=== PATIENT | male | born 1945 | race Caucasian/White ===

== ENCOUNTER 2019-05-18 15:05 | Observation (INO) | payer SELFPAY | END 2019-05-18 19:15 | disposition home or self-care (01) | PROVIDERS: Admitting Provider Internal Medicine Cardiovascular Disease; Family Provider Emergency Medicine Emergency Medical Services; Visit Provider Internal Medicine Cardiovascular Disease | DX: I70.223 Atherosclerosis of native arteries of extremities with rest pain, bilateral legs (principal); K21.9 Gastro-esophageal reflux disease without esophagitis; J44.9 Chronic obstructive pulmonary disease, unspecified; Z98.890 Other specified postprocedural states; N40.0 Benign prostatic hyperplasia without lower urinary tract symptoms; Z87.891 Personal history of nicotine dependence; Z79.82 Long term (current) use of aspirin; I77.1 Stricture of artery | CPT/HCPCS: 36415; 37224; 85730 ×2; C1725; J1644; J2001; J2250 ×2; J2405; J3010 ×2; Q9967 ==

== ENCOUNTER → 2019-05-26 11:14 | Outpatient (BNVA) | payer OTHER, SELFPAY | PROVIDERS: Family Provider Emergency Medicine Emergency Medical Services; PCP Nurse Practitioner Family; Visit Provider Nurse Practitioner Family | DX: I73.9 Peripheral vascular disease, unspecified (principal) | CPT/HCPCS: 80048 ==

== ENCOUNTER → 2021-12-13 09:05 | Outpatient (BNVA) | payer OTHER, SELFPAY | PROVIDERS: Family Provider Emergency Medicine Emergency Medical Services; PCP Emergency Medicine Emergency Medical Services; Visit Provider Surgery | DX: R13.10 Dysphagia, unspecified (principal); K63.5 Polyp of colon; R10.9 Unspecified abdominal pain | CPT/HCPCS: 99204 ==

== ENCOUNTER 2022-01-02 06:14 | Outpatient (CLI) | payer OTHER, SELFPAY ==
--- NOTE | 2022-01-02 | US_ITS ---
WS: [id number] ULTRASOUND ABDOMEN LIMITED CLINICAL INFORMATION: RIGHT ABDOMINAL PAIN. RUQ TO ASSESS GALLBLADDER COMPARISON: None. FINDINGS: Liver Size: Normal. Craniocaudal length: 13.7 cm. Echogenicity: Normal. Surface nodularity: None. Mass (size and location): None. Bile ducts Intrahepatic ducts: Normal. Common bile duct diameter: 0.3 cm. Gallbladder Normal. Gallstones: None. Gallbladder sludge: None. Gallbladder wall thickening: None. Pericholecystic fluid: None. Sonographic Muñoz sign: Absent. Pancreas Normal as visualized. Right kidney: Normal. Hydronephrosis: None. Size: 10.2 cm x 5.1 cm x 3.9 cm. Abdominal aorta and IVC Visualized portions are normal. Ascites: None. US/US abdomen limited [id number] IMPRESSION: Normal RIGHT upper quadrant ultrasound
== END 2022-01-02 06:15 | disposition home or self-care (01) ==
LOC: RAD 06:15
PROVIDERS: PCP Emergency Medicine Emergency Medical Services; Visit Provider Emergency Medicine Emergency Medical Services
DX: R10.11 Right upper quadrant pain (principal)
CPT/HCPCS: 76705

== ENCOUNTER → 2022-01-17 14:18 | Outpatient (BNVA) | payer OTHER, SELFPAY | PROVIDERS: PCP Emergency Medicine Emergency Medical Services; Visit Provider Surgery | DX: R59.0 Localized enlarged lymph nodes (principal); K63.5 Polyp of colon; R13.10 Dysphagia, unspecified | CPT/HCPCS: 99213 ==

== ENCOUNTER 2022-02-07 11:50 | Outpatient (CLI) | payer OTHER, SELFPAY ==
--- NOTE | 2022-02-07 12:11 | CT_ITS ---
WS: [id number] CT ABDOMEN PELVIS TECHNIQUE: Noncontrast CT of the abdomen and pelvis with coronal and sagittal reformatted images. CLINICAL INFORMATION: ABDOMINAL PAIN COMPARISON: CT October 25, 2015 DLP: 750.[address] scans at [facility] use at least one of these dose optimization techniques: automated e xposure control; mA and/or kV adjustment per patient size (includes targeted exams where dose is matc hed to clinical indication); or iterative reconstruction. FINDINGS: Normal noncontrast liver. Splenic granulomas. Circumferential thickening at the GE junction distal es ophagus can be seen with esophagitis. Recommend clinical correlation. Normal stomach and proximal duo denum. Gallbladder appears normal. Normal noncontrast pancreas. Aortic calcification. Normal caliber abdominal aorta. No aneurysm. Trace pleural fluid in the lung bases. Atelectasis and fibrosis in the lower lobes RIGHT greater than LEFT. Pectus excavatum. Urine distended bladder. Enlarged heterogeneous nodular prostate progressed since 2016 with evidence of bladder outlet obstruction. Prostate measures 4.2 x 4.5 cm with indentation on the bladder. Rectosigmoid constipation. Diffuse pancolonic constipation. . Low-lying tortuous transverse colon. To rtuous sigmoid colon with caliber change in the LEFT lower quadrant proximal to the rectum. Sigmoid c olon appears completely decompressed in this area. Recommend further evaluation with colonoscopy to a ssess for stricture. Normal lumbar spine. Adrenal glands are normal. No hydronephrosis in either kidn ey. CT/CT abdomen pelvis wo con [id number] IMPRESSION: 1. Markedly enlarged heterogeneous nodular prostate with indentation the bladd er with evidence of bladder outlet obstruction. Findings suspicious for neoplas ia/hyperplasia. Recommend correlation PSA. This is progressed since 2016. 2. Caliber change in the sigmoid colon in the LEFT lower quadrant. Recommend f urther evaluation with colonoscopy to assess for stricture. Diffuse pancolonic constipation proximal to the area of decompression. 3. Mild circumferential thickening at the GE junction can be seen with esophag itis. Recommend clinical correlation. 4. Normal caliber abdominal aorta. No aneurysm. 5. Fibrosis in the lung bases with trace pleural fluid. 6. No other acute findings.
[2022-02-07] MEDS: barium sulfate 450 mL Oral Susp PO (13:56)
== END 2022-02-07 11:51 | disposition home or self-care (01) ==
LOC: RAD 11:51
PROVIDERS: PCP Emergency Medicine Emergency Medical Services; Visit Provider Emergency Medicine Emergency Medical Services
DX: N40.0 Benign prostatic hyperplasia without lower urinary tract symptoms (principal); R10.9 Unspecified abdominal pain
CPT/HCPCS: 74176

== ENCOUNTER → 2022-02-28 06:42 | Day surgery (SDC) | payer OTHER, SELFPAY ==
[2022-02-26 08:49] VITALS: BMI 17.9
--- NOTE | 2022-02-28 07:35 | ANES.PREANE2 ---
Pre-Anesthetic Assessment Height/Weight: Height 1.78 m Weight 56.699 kg Operation Date: 02/28/22 07:30 Proposed Procedures p EGD and colonoscopy 70733,79364,R13.10,K63.5,R10.9(Not Applicable) - Leo Hubbard DO s Colonoscopy(Not Applicable) - Leo Hubbard DO Familial anesthetic complications: none Was Beta Mallory taken within 24 hours: N/A Was Clonidine taken within 24 hours: N/A Last intake: black coffee at 0530 Social No alcohol and No tobacco former smoker Exam alert, oriented x 3, clear to auscultation bilaterally and regular rate & rhythm Airway Mallampati: Class II Dentition: full Pulmonary 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 Prednisone 5 mg daily CV/HEM Peripheral Vascular Disease GI Gastroesophageal Reflux Disease Musc/skel underweight Anesthetic Plan ASA status: 4 Anesthesia: MAC Risk of > 500 ml blood loss (7ml/kg in children): No Medications/Allergies Home Medications Medication Instructions Recorded Confirmed Last Taken Type albuterol sulfate 90 mcg/actuation 2 puff inhalation Q6H PRN 05/26/19 02/26/22 02/26/22 History aerosol inhaler (ProAir HFA) Shortness Of Breath aspirin 81 mg tablet,delayed 81 mg PO DAILY 05/26/19 02/26/22 02/26/22 History release (Adult Aspirin Regimen) cetirizine 10 mg capsule (Allergy 10 mg PO DAILY 05/26/19 02/26/22 02/26/22 History Relief (cetirizine)) fluticasone furoate 200 1 inh inhalation Q24H 05/26/19 02/26/22 02/26/22 History mcg/actuation blister powder for inhalation (Arnuity Ellipta) guaifenesin 400 mg tablet 400 mg PO Q4H 05/26/19 02/26/22 02/26/22 History potassium chloride 10 mEq 10 meq PO BID 05/26/19 02/26/22 02/26/22 History capsule,extended release tiotropium bromide 1.25 2 puff inhalation Q24H 05/26/19 02/26/22 Unknown History mcg/actuation mist for inhalation (Spiriva Respimat) ascorbate calcium (vitamin C) 500 500 mg PO DAILY 08/26/19 02/26/22 02/26/22 History mg tablet cholecalciferol (vitamin D3) 75 3,000 unit PO DAILY 08/26/19 02/26/22 02/26/22 History mcg (3,000 unit) tablet prednisone 5 mg tablet 5 mg PO DAILY 02/26/22 02/26/22 02/26/22 History acetaminophen 500 mg tablet 1,000 mg PO Q6H PRN Pain 02/28/22 02/28/22 02/27/22 History diphenhydramine HCl 25 mg capsule 25 mg PO BEDTIME 02/28/22 02/28/22 02/26/22 History (Benadryl) echinacea 500 mg capsule 500 mg PO DAILY PRN Pain 02/28/22 02/28/22 02/27/22 History tamsulosin 0.4 mg capsule 0.4 mg PO DAILY 02/28/22 02/28/22 02/26/22 History Allergies Allergy/AdvReac Type Severity Reaction Status Date / Time penicillin G Allergy Unresponsiv Verified 02/26/22 08:44 e Sulfa (Sulfonamide Allergy Unknown Verified 02/26/22 08:44 Antibiotics) tetracycline Allergy Unknown Verified 02/26/22 08:44 [facility] Anesthesia Medical History BPH (benign prostatic hyperplasia) Colon polyps COPD (chronic obstructive pulmonary disease) Dysphagia Esophageal dilatation GERD (gastroesophageal reflux disease) PAD (peripheral artery disease) S/P angiogram of extremity Surgical History History of esophagogastroduodenoscopy (EGD) History of tonsillectomy and adenoidectomy Hx of colonoscopy over 5 yrs ago-no polyps Family History Father Cancer COLON Mother Alzheimer disease Social History Smoking and tobacco status: never smoked Alcohol intake: current Desire information about alcohol rehabilitation?: No Counseling given: No Data Anesthesia Cardiac Studies: No Data to Display
[2022-02-28 07:41] VITALS: BP 128/54; PULSE 61; RESP 18; TEMP 36.6; O2SAT 98
[2022-02-28] MEDS: sodium chloride 0.9% 1,000 ML 30 ML IV (07:45)
--- NOTE | 2022-02-28 07:47 | ECG_ITS ---
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 Measurements Intervals [place] Rate: 59 P: 67 ID: [id number] QRS: 75 QRSD: 93 T: 66 QT: 431 QTc: 427 Interpretive Statements SINUS BRADYCARDIA POSSIBLE LEFT ATRIAL ENLARGEMENT [-0.1mV P-WAVE IN V1/V2] SEPTAL MYOCARDIAL INFARCTION , PROBABLY OLD [40+ ms Q WAVE IN V1/V2] Compared to ECG 04/21/2018 16:42:33 Myocardial infarct finding now present Sinus rhythm no longer present Electronically Signed On 03-01-2022 13:04:30 CDT by Katy Ellsi M.D. [id number]
--- NOTE | 2022-02-28 08:13 | PM.MISC ---
Miscellaneous Note Note: After exam, patient revealed he has had history of chest pains and hasn't seen a mechanic and welder. Chest pain is atypical in nature, over the sternum, sometimes displaced slightly to the lower right of sternum, the pain is sharp, lasts 30 seconds, and is brought on randomly. It is not exacerbated by activity. He also states that the pain has become less frequent since his lungs have improved. States last episode was 3 weeks ago. EKG revealed Q waves in V1 and V2. No active chest pain at the moment. 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 He has also been having dizzy spells and episodes of almost blacking out. This occurred again last night.
--- NOTE | 2022-02-28 08:22 | PC.NURSE ---
case canceled due to patient having dizziness and almost passing out and having a history of chest pain without seeing a master of ceremonies. 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
== END ==
PROVIDERS: PCP Emergency Medicine Emergency Medical Services; Visit Provider Surgery
PROC: 0DJ08ZZ Inspection of Upper Intestinal Tract, Via Natural or Artificial Opening Endoscopic (ICD-10-PCS; CPT 43235; principal; 2022-02-28 07:30)
PROC: 0DJD8ZZ Inspection of Lower Intestinal Tract, Via Natural or Artificial Opening Endoscopic (ICD-10-PCS; CPT 45378; 2022-02-28 07:30)
DX: Z53.8 Procedure and treatment not carried out for other reasons (principal); R13.10 Dysphagia, unspecified; J44.9 Chronic obstructive pulmonary disease, unspecified; Z79.52 Long term (current) use of systemic steroids; K21.9 Gastro-esophageal reflux disease without esophagitis; Z79.82 Long term (current) use of aspirin; N40.0 Benign prostatic hyperplasia without lower urinary tract symptoms
CPT/HCPCS: 93005; J7030

== ENCOUNTER → 2022-03-08 08:42 | Outpatient (BNVA) | payer OTHER, SELFPAY | PROVIDERS: PCP Emergency Medicine Emergency Medical Services; Visit Provider Urology | DX: N43.40 Spermatocele of epididymis, unspecified (principal); N50.9 Disorder of male genital organs, unspecified | CPT/HCPCS: 81003; 99203 ==

== ENCOUNTER → 2022-03-22 12:38 | Outpatient (BNVA) | payer OTHER, SELFPAY | PROVIDERS: PCP Emergency Medicine Emergency Medical Services; Visit Provider Internal Medicine Cardiovascular Disease | DX: R00.1 Bradycardia, unspecified (principal); R94.31 Abnormal electrocardiogram [ECG] [EKG]; J44.9 Chronic obstructive pulmonary disease, unspecified; I73.9 Peripheral vascular disease, unspecified; Z87.891 Personal history of nicotine dependence | CPT/HCPCS: 99213; 99214 ==

== ENCOUNTER 2022-06-04 07:38 | Outpatient (CLI) | payer OTHER, SELFPAY ==
[2022-06-04 07:46] VITALS: BMI 16.0
--- NOTE | 2022-06-04 08:02 | ECG_ITS ---
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 Interpretive Statements NAME OF STUDY: LEXISCAN SESTAMIBI STRESS TEST INDICATION: [abnormal ekg, ] Procedure: At the baseline, the blood pressure was 111/61 mmHg with a heart rate of 66 bpm. The electrocardiogram showed normal sinus rhythm, normal axis with normal ST and T's. The Lexiscan was infused over a period of 20 seconds. A total of 0.4 mg of Lexiscan was infused. The stress phase was continued for a total of 5 minutes. Heart rate was at the end of stress phase was 73 bpm and a blood pressure of 115/67 mmHg. The EKG at the peak infusion revealed normal sinus rhythm with no significant ST-T wave changes. Sestamibi was injected 20 seconds after the Lexiscan infusion. Blood pressure at the end of recovery phase was 116/66 mmHg with a heart rate of 72 bpm. Conclusion: 1. Normal EKG response to Lexiscan infusion 2. No Lexiscan induced chest pain or cardiac arrhythmia. 3. Normal blood pressure and heart rate response. 4. Sestamibi/sestamibi perfusion scan pending; see separate report. Electronically Signed On 06-17-2022 19:50:50 HYDRAULIC PRESS OPERATOR by Sidney Maldonado M.D. [id number]
--- NOTE | 2022-06-04 08:03 | NMCV_ITS ---
NM janeth perf SPECT r/s* [id number] Olivier Gregg Age: 76 Gender: M : 1945 Exam Date: 06/04/2022 08:44 Ordering Phys: Ariel Ashton MD ([email or web address]) Technologist: SAVANNAH Ramos Exam Location: [facility] Indications: ABNORMAL EKG STRESS TEST Please see separate stress test report in [facility] for full findings IMAGE PROTOCOL Rest/Stress 1 Lexiscan Day Radiopharmaceutical Dose (mCi) Administration Site Administered by Rest: Tc-99m 10.8 IV SAVANNAH Weller Sestamibi Stress:Tc-99m 32.7 IV SAVANNAH Weller Sestamibi Rest: 04-Jun-2022 60 Discovery 630 Stress: 04-Jun-2022 30 Discovery 630 0.4mg Lexiscan. Images obtained in supine and prone position. SPECT RESULTS Technical Quality: Excellent Raw Data Analysis: Normal Image Corrections: No attenuation or motion correction applied Summed Stress Score: 0 Summed Rest Score: 0 Summed Difference Score: 0 PERFUSION FINDINGS SPECT images demonstrate homogeneous tracer distribution throughout the myocardium. FUNCTIONAL RESULTS (calculated via Gated SPECT) Stress Image LV EF (%): 62 Stress EDV (mL):85 TID: 1.17 Stress ESV (mL):32 FUNCTIONAL FINDINGS: There is normal left ventricular systolic function. IMPRESSIONS 1. Normal myocardial perfusion imaging with no evidence of ischemia 2. LV systolic function is normal Sidney Maldonado MD (Electronically Signed) Final Date: 04 June 2022 12:38 S
[2022-06-04] MEDS: regadenoson 0.4 Mg/5 ml Syringe IVP (10:16)
[2022-06-04 10:20] VITALS: BP 128/69; PULSE 72
== END 2022-06-04 07:39 | disposition home or self-care (01) ==
PROVIDERS: PCP Emergency Medicine Emergency Medical Services; Visit Provider Internal Medicine Cardiovascular Disease
DX: R94.31 Abnormal electrocardiogram [ECG] [EKG] (principal)
CPT/HCPCS: 36415; 78452; 93017; 96374; A9500; J2785

== ENCOUNTER 2022-09-15 11:19 | Emergency (ER) | payer OTHER, SELFPAY ==
[2022-09-15 11:25] VITALS: BP 124/81; PULSE 93; RESP 16; TEMP 36.4; O2SAT 97; BMI 16.9
--- NOTE | 2022-09-15 11:54 | ECG_ITS ---
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 Measurements Intervals [place] Rate: 85 P: 79 OR: 187 QRS: 79 QRSD: 90 T: 65 QT: 339 QTc: 404 Interpretive Statements SINUS RHYTHM RIGHT ATRIAL ENLARGEMENT [0.3mV P-WAVE] POSSIBLE LEFT ATRIAL ENLARGEMENT [-0.1mV P-WAVE IN V1/V2] Compared to ECG 02/28/2022 07:47:30 Sinus bradycardia no longer present Myocardial infarct finding no longer present Electronically Signed On 09-15-2022 16:41:06 CDT by Grzegorz Damon M.D. [id number]
--- NOTE | 2022-09-15 11:54 | CTR_ITS ---
PROCEDURE INFORMATION: Exam: CT Head Without Contrast Exam date and time: 09/15/2022 12:46 PM Age: 77 years old Clinical indication: Other: Loss of balance; Additional info: Loss of balance - sudden onset TECHNIQUE: Imaging protocol: Computed tomography of the head without contrast. Radiation optimization: All CT scans at this facility use at least one of these dose optimization techniques: automated exposure control; mA and/or kV adjustment per patient size (includes targeted exams where dose is matched to clinical indication); or iterative reconstruction. REPORTING DATA: Count of CT and Cardiac NM exams in prior 12 months: This patient has received 2 known CTs and 0 known cardiac nuclear medicine studies in the 12 months prior to the current study. COMPARISON: CT head wo con* [id number] 04/21/2018 6:05 PM RADIATION DOSE METRICS: Total DLP (mGy-cm): 1012.95 FINDINGS: Brain: Normal. No hemorrhage. Unremarkable white matter. No mass effect. Cerebral ventricles: No ventriculomegaly. Paranasal sinuses: Visualized sinuses are unremarkable. No fluid levels. Mastoid air cells: Visualized mastoid air cells are well aerated. Bones/joints: Unremarkable. No acute fracture. Soft tissues: Unremarkable. Comparison to prior examination similar findings seen CT/CT head wo con* [id number] IMPRESSION: No acute intracranial abnormality.
[2022-09-15 12:21] VITALS: BP 107/84; PULSE 90; RESP 23; O2SAT 96
[2022-09-15 12:23] VITALS: BP 107/84; BP 110/82; BP 123/81; PULSE 92; PULSE 93; PULSE 98
--- NOTE | 2022-09-15 12:26 | XRR_ITS ---
PROCEDURE INFORMATION: Exam: XR Chest Exam date and time: 09/15/2022 12:52 PM Age: 77 years old Clinical indication: Other: Loss of balance; Additional info: SOB TECHNIQUE: Imaging protocol: Radiologic exam of the chest. Views: 2 views. COMPARISON: CR XR chest 1V [id number] 04/21/2018 2:30 PM FINDINGS: Lungs: Interstitial densities present in the right lower lobe No consolidation. The lungs are hyperexpanded consistent with COPD. Left upper lobe pneumatocele Pleural spaces: Unremarkable. No pleural effusion. No pneumothorax. Heart/Mediastinum: Unremarkable. No cardiomegaly. Bones/joints: Diffuse osteopenia is noted in the dorsal spine XR/XR chest 2V* [id number] IMPRESSION: 1. No acute findings. 2. Stable chronic COPD. 3. Interstitial densities right lower lobe. 4. Left upper lobe pneumatocele
--- NOTE | 2022-09-15 12:29 | ED_ITS ---
HPI - Weakness General: Chief complaint: Weakness Stated complaint: Weakness Time Seen by Provider: 09/15/22 11:53 History of Present Illness: Patient comes in with generalized weakness. States that he has [facility] for a while now. States that they have him scheduled for an EGD and a colonoscopy this week. States that over the last cou ple of days his weakness is gotten worse. States yesterday he had an episode walking back to his truck where he felt off balance like he was pulling to the left. States that it lasted for about 30 minutes and then resolved. States that this morning when he got up to use the restroom a couple of times he had similar episodes and nearly passed out. States that this morning while walking to the bathroom his initial episode he felt like his left side was weak. He is currently asymptomatic at this time. Associated symptoms: Denies chest pain, dysuria, fever(s), headache(s), nausea or vomiting Review of Systems Const: Denies: fever(s) or body aches Eyes: Denies: change in vision or blurry vision ENMT: Denies: throat pain or odynophagia Card: Denies: chest pain or palpitations Resp: Denies: dyspnea or productive cough GI: Denies: abdominal pain, nausea or vomiting : Denies: flank pain or dysuria Musc: Denies: neck pain or back pain Skin/Breast: Denies: rash Neuro: Denies: headache(s) or numbness in extremities PFS ED PFSH: Medical History (Updated 09/15/22 @ 15:24 by Neeraj Edgar MD) Abnormal ECG BPH (benign prostatic hyperplasia) Colon polyps COPD (chronic obstructive pulmonary disease) Dysphagia Esophageal dilatation GERD (gastroesophageal reflux disease) PAD (peripheral artery disease) S/P angiogram of extremity Surgical History History of esophagogastroduodenoscopy (EGD) History of tonsillectomy and adenoidectomy Hx of colonoscopy over 5 yrs ago-no polyps Family History Father , at age 75 Cancer colon Mother , at age 86 Alzheimer disease Social History Smoking and tobacco status: former smoker Alcohol intake: current Alcohol intake frequency: 0-2 Drinks per Day Desire information about alcohol rehabilitation?: No Counseling given: No Substance/Drug Use: former Marital status: Current occupational status: retired and disabled Physical Exam Const: COMMON NORMALS: no acute distress, patient oriented x3 and alert HENMT: COMMON NORMALS: normocephalic and atraumatic HEAD & SCALP: normocephalic and atraumatic Eye: COMMON NORMALS: Equal, round and reactive pupils present and EOMs intact bilaterally PUPIL: Yes Equal, round and reactive pupils present OTHER: Pale conjunctiva Neck/C-Spine: COMMON NORMALS: full ROM and supple Resp: COMMON NORMALS: normal respiratory effort, No retractions and No use of accessory muscles Cardio: COMMON NORMALS: regular rate and regular rhythm RATE: regular rate RHYTHM: regular rhythm GI: COMMON NORMALS: Normal to inspection, nondistended, normoactive bowel sounds present, Soft to palpation and non-tender PALPATION: Yes Soft to palpation Extremity: COMMON NORMALS: normal to inspection and full ROM Neuro: COMMON NORMALS: patient oriented x3 SENSORIUM/ORIENTATION: Yes alert OTHER: Grossly normal neuro exam with no lateralizing symptoms Psych: COMMON NORMALS: mental status grossly normal and cooperative Skin: COMMON NORMALS: no rashes or lesions noted and no wounds GENERAL SKIN EXAM: no rashes or lesions noted Course Vital Signs: Vital signs: Vital Signs Temperature 97.5 F L 09/15/22 11:25 Pulse Rate 77 09/15/22 14:51 Respiratory Rate 24 H 09/15/22 14:51 Blood Pressure 113/69 09/15/22 14:51 Pulse Oximetry 97 09/15/22 14:51 Oxygen Delivery Me thod Room Air 09/15/22 12:21 MDM - Weakness Medical Decision Making Patient comes in with generalized weakness. States that [facility] now. States that they have him scheduled for an EGD and a colonoscopy this week. States that over the last couple of days his weakness is gotten worse. States yesterday he had an episode walking back to his truck where he felt off balance like he was pulling to the left. States that it lasted for about 30 minutes and then resolved. States that this morning when he got up to use the restroom a couple of times he had similar episodes and nearly passed out. States that this morning while walking to the bathroom his initial episode he felt like his left side was weak. He is currently asymptomatic at this time. On physical exam he has pale conjunctiva. His neuro exam is grossly normal with no lateralizing symptoms. Will check labs, CT, and reassess. On reassessment I talked to the patient about the test results. I talked with him about my concerns that these episodes may represent TIAs. I talked with him about admission for a TIA/stroke work-up. The patient states he does not want to be admitted. I talked with him about the increased risk for a full stroke over the next 72 hours. He states he understands that but does not want to be admitted. We will have him sign AMA. I discussed this with his son who is in the room at the same time. Lab Data 09/15/22 13:41 09/15/22 13:[address] 09/15/22 11:54 IMPRESSION: No acute intracranial abnormality. Chest X-Ray 09/15/22 12:26 IMPRESSION: 1. No acute findings. 2. Stable chronic COPD. 3. Interstitial densities right lower lobe. 4. Left upper lobe pneumatocele Laboratory Results WBC 15.2 10^3/uL (4.0-10.0) H 09/15/22 13:41 RBC 3.99 10^6/uL (4.1-5.3) L 09/15/22 13:41 Hgb 12.4 g/dL (11.7-16.6) 09/15/22 13:41 Hct 39.7 % (42.0-52.0) L 09/15/22 13:41 MCV 99.5 fl (80-94) H 09/15/22 13:41 MCH 31.1 pg (28.0-34.0) 09/15/22 13:41 MCHC 31.2 g/dL (30.0-36.0) 09/15/22 13:41 RDW 13.7 % (12.1-15.1) 09/15/22 13:41 Plt Count 390 10^3/cmm (130-400) 09/15/22 13:41 MPV 9.0 fL (7.4-10.4) 09/15/22 13:41 Neut % (Auto) 73.2 % 09/15/22 13:41 Lymph % (Auto) 12.4 % 09/15/22 13:41 [place] % (Auto) 9.3 % 09/15/22 13:41 Eos % (Auto) 3.6 % 09/15/22 13:41 Baso % (Auto) 0.7 % 09/15/22 13:41 Neut # (Auto) 11.10 10^3/uL (1.8-7.7) H 09/15/22 13:41 Lymph # (Auto) 1.9 10^3/uL (0.8-4.8) 09/15/22 13:41 [place] # (Auto) 1.4 10^3/uL (0.2-0.9) H 09/15/22 13:41 Eos # (Auto) 0.5 10^3/uL (0.0-0.8) 09/15/22 13:41 Baso # (Auto) 0.1 10^3/uL (0.0-0.1) 09/15/22 13:41 Nucleated RBC % (auto) 0 % 09/15/22 13:41 Nucleated RBCs # 0.0 /100WBC 09/15/22 13:41 Sodium 139 mmol/L (136-145) 09/15/22 13:41 Potassium 4.7 mmol/L (3.5-5.1) 09/15/22 13:41 Chloride 101 mmol/L (98-107) 09/15/22 13:41 Carbon Dioxide 24 mmol/L (22-29) 09/15/22 13:41 Anion Gap 18.7 (5-19) 09/15/22 13:41 BUN 17 mg/dL (8-23) 09/15/22 13:41 Creatinine 0.8 mg/dL (0.7-1.2) 09/15/22 13:41 GFR Calculation Not Reportable 09/15/22 13:41 Glucose 79 mg/dL (65-115) 09/15/22 13:41 Calculated Osmolality 288 mOsm/kg (285-295) 09/15/22 13:41 Calcium 8.7 mg/dL (8.5-10.5) 09/15/22 13:41 Magnesium 2.1 mg/dL (1.7-2.3) 09/15/22 13:41 Total Bilirubin 0.5 mg/dL (0.15-1.2) 09/15/22 13:41 AST 18 U/L (0-40) 09/15/22 13:41 ALT 8 U/L (0-41) 09/15/22 13:41 Alkaline Phosphatase 137 U/L (40-130) H 09/15/22 13:41 Troponin T Baseline 6 ng/L (0-15) 09/15/22 13:41 Total Protein 6.6 g/dL (6.6-8.7) 09/15/22 13:41 Albumin 3.7 g/dL (3.5-5.2) 09/15/22 13:41 Globulin 2.9 g/dL (1.3-4.6) 09/15/22 13:41 Urine Color Yellow (Yellow) 09/15/22 12:35 Urine Appearance Clear (CLEAR) 09/15/22 12:35 Urine pH 7 (5-7) 09/15/22 12:35 Ur Specific [place] 1.010 (1.005-1.030) 09/15/22 12:35 Urine Protein Neg (Negative) 09/15/22 12:35 Urine Glucose (UA) Norm (Normal) 09/15/22 12:35 Urine Ketones Negative (Negative) 09/15/22 12:35 Urine Blood Neg (Negative) 09/15/22 12:35 Urine Nitrate Negative (Negative) 09/15/22 12:35 Urine Bilirubin Neg (Negative) 09/15/22 12:35 Urine Urobilinogen Norm mg/dL (Negative) 09/15/22 12:35 Ur Leukocyte Esterase Negative (Negative) 09/15/22 12:35 Blood Type O Positive 09/15/22 13:41 Rho(D) Type Positive 09/15/22 13:41 Antibody Screen Negative 09/15/22 13:41 Discharge Plan Discharge Patient Disposition: Left Against Medical Advice Clinical Impression: Transient ischemic attack, Near syncope Condition: Stable Prescriptions: No Action guaifenesin 400 mg tablet 400 mg PO Q4H Allergy Relief (cetirizine) 10 mg capsule 10 mg PO DAILY potassium chloride 10 mEq capsule, extended release 10 meq PO BID Arnuity Ellipta 200 mcg/actuation blister with device 1 inh INHALATION Q24H albuterol sulfate [ProAir HFA] 90 mcg/actuation HFA aerosol inhaler 2 puff INHALATION Q6H PRN (Reason: Shortness Of Breath) aspirin [Adult Aspirin Regimen] 81 mg tablet,delayed release (DR/EC) 81 mg PO DAILY Spiriva Respimat 1.25 mcg/actuation mist 2 puff INHALATION Q24H cholecalciferol (vitamin D3) 3,000 unit tablet 3,000 unit PO DAILY ascorbate calcium (vitamin C) 500 mg tablet 500 mg PO DAILY fluticasone propion-salmeterol [Wixela Inhub] 100-50 mcg/dose blister with device 1 inh inhalation BID prednisone 5 mg Tablet 5 mg PO DAILY acetaminophen 500 mg Tablet 1,000 mg PO Q6H PRN (Reason: Pain) tamsulosin 0.4 mg Capsule 0.4 mg PO DAILY Benadryl 25 mg Capsule 25 mg PO BEDTIME echinacea 500 mg Capsule 500 mg PO DAILY PRN (Reason: Pain) Rx Instructions: administer with meals Referrals: Rito Montero DO [Primary Care Provider] - Coding Level of Care Code ED Derrick Operator for Glo Elena
[2022-09-15 12:40] LABS: Add Urine Microscopic? NO; Charge for UA Resulting for Rev
[2022-09-15 12:43] LABS: Bilirubin Urine Neg (Negative); Blood Urine Neg (Negative); Glucose Urine UA Norm (Normal); Ketones Urine Negative (Negative); Leukocyte Esterase Urine Negative (Negative); Nitrate Urine Negative (Negative); Protein Urine Neg (Negative); Urine Appearance Clear (CLEAR); Urine Color Yellow (Yellow); Urobilinogen Urine Norm (Negative); pH Urine 7 (5-7)
[2022-09-15 13:43] VITALS: BP 116/67; PULSE 79; RESP 25; O2SAT 98
[2022-09-15 13:55] LABS: Basophils # 0.1 10^3/uL (0.0-0.1); Basophils % 0.7 %; Eosinophils # 0.5 10^3/uL (0.0-0.8); Eosinophils % 3.6 %; Hematocrit 39.7 % (42.0-52.0); Hemoglobin 12.4 g/dL (11.7-16.6); Lymphocytes # 1.9 10^3/uL (0.8-4.8); Lymphocytes % 12.4 %; Mean Corpuscular HGB Conc 31.2 g/dL (30.0-36.0); Mean Corpuscular Hemoglobin 31.1 pg (28.0-34.0); Mean Corpuscular Volume 99.5 fl (80-94); Monocytes # 1.4 10^3/uL (0.2-0.9); Monocytes % 9.3 %; Neutrophils % 73.2 %; Nucleated Red Blood Cells % 0 %; Platelet Count 390 10^3/cmm (130-400); Red Blood Count 3.99 10^6/uL (4.1-5.3); Red Cell Distribution Width 13.7 % (12.1-15.1); White Blood Count 15.2 10^3/uL (4.0-10.0)
[2022-09-15 14:15] LABS: Troponin(5th) Baseline 6 ng/L (0-15)
[2022-09-15 14:17] LABS: Alanine Aminotransferase 8 U/L (0-41); Albumin Level 3.7 g/dL (3.5-5.2); Alkaline Phosphatase 137 U/L (40-130); Aspartate Amino Transferase 18 U/L (0-40); Blood Urea Nitrogen 17 mg/dL (8-23); Calcium 8.7 mg/dL (8.5-10.5); Carbon Dioxide 24 mmol/L (22-29); Chloride 101 mmol/L (98-107); Globulin 2.9 g/dL (1.3-4.6); Glucose 79 mg/dL (65-115); Magnesium 2.1 mg/dL (1.7-2.3); Osmolality Calculated 288 mOsm/kg (285-295); Sodium 139 mmol/L (136-145); Total Bilirubin 0.5 mg/dL (0.15-1.2); Total Protein 6.6 g/dL (6.6-8.7)
[2022-09-15 14:20] LABS: Anion Gap 18.7 (5-19); Potassium 4.7 mmol/L (3.5-5.1)
[2022-09-15 14:23] VITALS: BP 106/65; PULSE 77; RESP 21; O2SAT 96
[2022-09-15 14:51] VITALS: BP 113/69; PULSE 77; RESP 24; O2SAT 97
--- NOTE | 2022-09-15 14:52 | ECG_ITS ---
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 Measurements Intervals [place] Rate: 71 P: 80 NE: 191 QRS: 77 QRSD: 88 T: 71 QT: 370 QTc: 405 Interpretive Statements SINUS RHYTHM POSSIBLE RIGHT ATRIAL ENLARGEMENT [0.25mV P-WAVE] POSSIBLE LEFT ATRIAL ENLARGEMENT [-0.1mV P-WAVE IN V1/V2] Compared to ECG 09/15/2022 12:19:32 No significant changes Electronically Signed On 09-15-2022 17:02:53 CDT by Grzegorz Damon M.D. [id number]
== END 2022-09-15 15:39 | disposition left against medical advice (07) ==
PROVIDERS: Family Medicine; Emergency Provider Emergency Medicine; PCP Emergency Medicine Emergency Medical Services
DX: G45.9 Transient cerebral ischemic attack, unspecified (principal); R55 Syncope and collapse; Z53.21 Procedure and treatment not carried out due to patient leaving prior to being seen by health care provider; Z79.82 Long term (current) use of aspirin; J44.9 Chronic obstructive pulmonary disease, unspecified; Z87.891 Personal history of nicotine dependence
CPT/HCPCS: 36415; 70450; 71046; 80053; 81003; 83735; 84484; 85025; 86850; 86900; 93005; 99285

== ENCOUNTER 2022-09-18 06:11 | Emergency (ER) | payer OTHER, SELFPAY ==
[2022-09-18 06:25] VITALS: BP 109/61; PULSE 73; RESP 16; TEMP 37; O2SAT 97; BMI 16.9
--- NOTE | 2022-09-18 06:32 | ECG_ITS ---
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 Measurements Intervals [place] Rate: 78 P: 85 [place]: 172 QRS: 91 QRSD: 85 T: 83 QT: 370 QTc: 423 Interpretive Statements SINUS RHYTHM WITH OCCASIONAL SUPRAVENTRICULAR PREMATURE COMPLEXES BORDERLINE RIGHT AXIS DEVIATION [QRS AXIS > 90] ANTEROSEPTAL MYOCARDIAL INFARCTION , OF INDETERMINATE AGE [40+ ms Q WAVE IN V1-V4] Compared to ECG 09/15/2022 14:52:40 Myocardial infarct finding now present Electronically Signed On 09-19-2022 0:17:26 CDT by Grzegorz Damon M.D. [id number]
[2022-09-18 06:36] VITALS: BP 109/61; PULSE 73; O2SAT 97
[2022-09-18 06:43] LABS: Basophils # 0.1 10^3/uL (0.0-0.1); Basophils % 0.8 %; Eosinophils % 6.9 %; Hemoglobin 11.2 g/dL (11.7-16.6); Lymphocytes # 1.6 10^3/uL (0.8-4.8); Lymphocytes % 11.8 %; Mean Corpuscular Hemoglobin 30.2 pg (28.0-34.0); Mean Corpuscular Volume 94.3 fl (80-94); Mean Platelet Volume 8.6 fL (7.4-10.4); Monocytes # 1.5 10^3/uL (0.2-0.9); Neutrophils # 9.53 10^3/uL (1.8-7.7); Neutrophils % 68.8 %; Nucleated Red Blood Cells % 0 %; Platelet Count 425 10^3/cmm (130-400); Red Blood Count 3.71 10^6/uL (4.1-5.3); Red Cell Distribution Width 13.7 % (12.1-15.1); White Blood Count 13.9 10^3/uL (4.0-10.0)
--- NOTE | 2022-09-18 06:43 | W.ED.GENADLT ---
HPI - General Adult General: Chief complaint: Weakness Stated complaint: Weakness, [facility] sent over Time Seen by Provider: 09/18/22 06:12 Source: patient Mode of arrival: ambulatory History of Present Illness: 77-year-old male presents to the emergency room requesting an MRI and a PET scan. He was seen 3 days ago for a TIA. He had been having some dizziness while lying flat and another episode while he was on the toilet. He had some near syncopal episode with falls as well. Has not had any chest pain. He was evaluated for this in the ER over the weekend. He reports most of his symptoms have resolved he still some mild dizziness. He states [facility] come to [facility] to have the MRI and PET scan done. He has not had any evaluation that has shown signs suspicious for cancer that he is aware of. He does have a colonoscopy later this week. He mentions he has been very depressed his recently and has been a difficult time adjusting to this. Onset (ago): day(s) (3) Relieving factors: rest Exacerbating factors: movement Associated symptoms: Deny chest pain, confusion, cough, diaphoresis, decreased appetite, dyspnea, fevers/chills, headache(s), malaise, nausea, rash, palpitations, seizures, short of breath, syncope, vomiting or weakness Treatments prior to arrival: none Review of Systems Const: Denies: fever(s), chills, fatigue, malaise or diaphoresis ENMT: Denies: throat pain, ear or mastoid pain, nasal discharge or nasal congestion Card: Denies: chest pain, palpitations or syncope Resp: Denies: dyspnea GI: Denies: abdominal pain, nausea or vomiting : Denies: flank pain, dysuria, urinary frequency or urinary urgency Skin/Breast: Denies: rash Neuro: Denies: headache(s) or confusion PFS ED PFSH: Medical History Abnormal ECG BPH (benign prostatic hyperplasia) Colon polyps COPD (chronic obstructive pulmonary disease) Dysphagia Esophageal dilatation GERD (gastroesophageal reflux disease) PAD (peripheral artery disease) S/P angiogram of extremity Surgical History History of esophagogastroduodenoscopy (EGD) History of tonsillectomy and adenoidectomy Hx of colonoscopy over 5 yrs ago-no polyps Family History Father , at age 75 Cancer colon Mother , at age 86 Alzheimer disease Social History Smoking and tobacco status: former smoker Alcohol intake: current Alcohol intake frequency: 0-2 Drinks per Day Desire information about alcohol rehabilitation?: No Counseling given: No Substance/Drug Use: former Marital status: Current occupational status: retired and disabled Physical Exam Const: COMMON NORMALS: no acute distress GENERAL APPEARANCE: cooperative and comfortable ORIENTATION/CONSCIOUSNESS: Yes awake, Yes oriented to person, Yes oriented to place and Yes oriented to time HENMT: COMMON NORMALS: normocephalic, atraumatic and hearing grossly normal bilaterally HEAD & SCALP: normocephalic and atraumatic Resp: COMMON NORMALS: normal respiratory effort, No retractions, No use of accessory muscles and clear to auscultation bilaterally AUSCULTATION: clear to auscultation bilaterally Cardio: COMMON NORMALS: regular rate, regular rhythm and No murmurs present (Cardio) RATE: regular rate RHYTHM: regular rhythm GI: COMMON NORMALS: Soft to palpation and No hepatosplenomegaly present AUSCULTATION: Yes normoactive bowel sounds PALPATION: Yes Soft to palpation, No Tenderness to palpation present (GI), No Guarding due to palpation present (GI) and Yes No hepatosplenomegaly present Extremity: COMMON NORMALS: normal to inspection, capillary refill normal, no clubbing, cyanosis or edema, no calf tenderness and no pedal edema Neuro: SENSORIUM/ORIENTATION: Yes oriented to person, Yes oriented to place and Yes oriented to time OTHER: No focal neurologic deficits are noted. Stroke score is 0 at time of exam. Skin: COMMON NORMALS: no rashes or lesions noted GENERAL SKIN EXAM: no rashes or lesions noted Course Vital Signs: Vital signs: Vital Signs Temperature 98.6 F 09/18/22 06:25 Pulse Rate 67 09/18/22 08:05 Respiratory Rate 16 09/18/22 06:25 Blood Pressure 116/61 09/18/22 08:05 Pulse Oximetry 97 09/18/22 08:05 Oxygen Delivery Me thod Room Air 09/18/22 07:14 MDM - General Adult Medical Decision Making No focal neurologic deficits are noted at this time he is not having an acute neurologic event. He has no known or suspected carcinoma that is not known at this time. He does have a colonoscopy scheduled later this week. For secondary stroke prevention given his recent TIA recommend he start on atorvastatin 40 mg daily and after his colonoscopy he can begin clopidogrel daily. Return if he has further problems MRI should be scheduled as an outpatient through the [place]. Medical Records I reviewed the patient's medical records. Lab Data I reviewed the patient's lab results. 09/18/22 06:30 09/18/22 06:30 Laboratory Results WBC 13.9 10^3/uL (4.0-10.0) H 09/18/22 06:30 RBC 3.71 10^6/uL (4.1-5.3) L 09/18/22 06:30 Hgb 11.2 g/dL (11.7-16.6) L 09/18/22 06:30 Hct 35.0 % (42.0-52.0) L 09/18/22 06:30 MCV 94.3 fl (80-94) H 09/18/22 06:30 MCH 30.2 pg (28.0-34.0) 09/18/22 06:30 MCHC 32.0 g/dL (30.0-36.0) 09/18/22 06:30 RDW 13.7 % (12.1-15.1) 09/18/22 06:30 Plt Count 425 10^3/cmm (130-400) H 09/18/22 06:30 MPV 8.6 fL (7.4-10.4) 09/18/22 06:30 Neut % (Auto) 68.8 % 09/18/22 06:30 Lymph % (Auto) 11.8 % 09/18/22 06:30 [place] % (Auto) 11.0 % 09/18/22 06:30 Eos % (Auto) 6.9 % 09/18/22 06:30 Baso % (Auto) 0.8 % 09/18/22 06:30 Neut # (Auto) 9.53 10^3/uL (1.8-7.7) H 09/18/22 06:30 Lymph # (Auto) 1.6 10^3/uL (0.8-4.8) 09/18/22 06:30 [place] # (Auto) 1.5 10^3/uL (0.2-0.9) H 09/18/22 06:30 Eos # (Auto) 1.0 10^3/uL (0.0-0.8) H 09/18/22 06:30 Baso # (Auto) 0.1 10^3/uL (0.0-0.1) 09/18/22 06:30 Nucleated RBC % (auto) 0 % 09/18/22 06:30 Nucleated RBCs # 0.0 /100WBC 09/18/22 06:30 Sodium 136 mmol/L (136-145) 09/18/22 06:30 Potassium 4.4 mmol/L (3.5-5.1) 09/18/22 06:30 Chloride 98 mmol/L (98-107) 09/18/22 06:30 Carbon Dioxide 27 mmol/L (22-29) 09/18/22 06:30 Anion Gap 15.4 (5-19) 09/18/22 06:30 BUN 15 mg/dL (8-23) 09/18/22 06:30 Creatinine 0.7 mg/dL (0.7-1.2) 09/18/22 06:30 GFR Calculation Not Reportable 09/18/22 06:30 Glucose 89 mg/dL (65-115) 09/18/22 06:30 Calculated Osmolality 282 mOsm/kg (285-295) L 09/18/22 06:30 Calcium 9.0 mg/dL (8.5-10.5) 09/18/22 06:30 Total Bilirubin 0.4 mg/dL (0.15-1.2) 09/18/22 06:30 AST 17 U/L (0-40) 09/18/22 06:30 ALT 8 U/L (0-41) 09/18/22 06:30 Alkaline Phosphatase 102 U/L (40-130) 09/18/22 06:30 Total Protein 6.9 g/dL (6.6-8.7) 09/18/22 06:30 Albumin 3.3 g/dL (3.5-5.2) L 09/18/22 06:30 Globulin 3.6 g/dL (1.3-4.6) 09/18/22 06:30 Urine Color Yellow (Yellow) 09/18/22 07:08 Urine Appearance Clear (CLEAR) 09/18/22 07:08 Urine pH 8 (5-7) H 09/18/22 07:08 Ur Specific [place] 1.010 (1.005-1.030) 09/18/22 07:08 Urine Protein Neg (Negative) 09/18/22 07:08 Urine Glucose (UA) Norm (Normal) 09/18/22 07:08 Urine Ketones Negative (Negative) 09/18/22 07:08 Urine Blood Neg (Negative) 09/18/22 07:08 Urine Nitrate Negative (Negative) 09/18/22 07:08 Urine Bilirubin Neg (Negative) 09/18/22 07:08 Prot Sulfosalicylic Acd Negative (Negative) 09/18/22 07:08 Urine Urobilinogen Norm mg/dL (Negative) 09/18/22 07:08 Ur Leukocyte Esterase Negative (Negative) 09/18/22 07:08 Discharge Plan Discharge Patient Disposition: Home Clinical Impression: Transient ischemic attack Condition: Stable Prescriptions: New atorvastatin 40 mg tablet 40 mg PO DAILY Qty: 30 0RF clopidogrel 75 mg tablet 75 mg PO DAILY Qty: 30 0RF No Action guaifenesin 400 mg tablet 400 mg PO Q4H Allergy Relief (cetirizine) 10 mg capsule 10 mg PO DAILY potassium chloride 10 mEq capsule, extended release 10 meq PO BID Arnuity Ellipta 200 mcg/actuation blister with device 1 inh INHALATION Q24H albuterol sulfate [ProAir HFA] 90 mcg/actuation HFA aerosol inhaler 2 puff INHALATION Q6H PRN (Reason: Shortness Of Breath) aspirin [Adult Aspirin Regimen] 81 mg tablet,delayed release (DR/EC) 81 mg PO DAILY Spiriva Respimat 1.25 mcg/actuation mist 2 puff INHALATION Q24H cholecalciferol (vitamin D3) 3,000 unit tablet 3,000 unit PO DAILY ascorbate calcium (vitamin C) 500 mg tablet 500 mg PO DAILY fluticasone propion-salmeterol [Wixela Inhub] 100-50 mcg/dose blister with device 1 inh inhalation BID prednisone 5 mg Tablet 5 mg PO DAILY acetaminophen 500 mg Tablet 1,000 mg PO Q6H PRN (Reason: Pain) tamsulosin 0.4 mg Capsule 0.4 mg PO DAILY Benadryl 25 mg Capsule 25 mg PO BEDTIME echinacea 500 mg Capsule 500 mg PO DAILY PRN (Reason: Pain) Rx Instructions: administer with meals Discharge Orders: Discharge ED (Routine); Ordered 09/18/22 Ordered By: Tyrone Pritchard Referrals: Rito Montero, [Primary Care Provider] - Discharge Diet: Usual diet Discharge Activity: Resume usual activity Patient Instructions: Opioid Safety, Pain Management Activity Restrictions/Additional Instructions: You to return to the emergency room requesting an MRI and an PET scan. These are usually scheduled by your primary care doctor as an outpatient. Your most recent visit for TIA was reviewed recommend that you start on atorvastatin and clopidogrel. However would recommend holding off starting on the clopidogrel until after the upcoming colonoscopy. Coding Level of Care Code ED Car Mechanic Helper for Glo Elena
[2022-09-18 07:00] LABS: Alanine Aminotransferase 8 U/L (0-41); Albumin Level 3.3 g/dL (3.5-5.2); Alkaline Phosphatase 102 U/L (40-130); Anion Gap 15.4 (5-19); Aspartate Amino Transferase 17 U/L (0-40); Blood Urea Nitrogen 15 mg/dL (8-23); Carbon Dioxide 27 mmol/L (22-29); Chloride 98 mmol/L (98-107); Globulin 3.6 g/dL (1.3-4.6); Glucose 89 mg/dL (65-115); Osmolality Calculated 282 mOsm/kg (285-295); Potassium 4.4 mmol/L (3.5-5.1); Sodium 136 mmol/L (136-145); Total Bilirubin 0.4 mg/dL (0.15-1.2); Total Protein 6.9 g/dL (6.6-8.7)
[2022-09-18 07:14] VITALS: BP 109/61; PULSE 68; O2SAT 96
[2022-09-18 07:31] LABS: Add Urine Microscopic? NO; Charge for UA Resulting for Rev
[2022-09-18 07:40] LABS: Urine Appearance Clear (CLEAR); Urine Color Yellow (Yellow)
[2022-09-18 07:42] LABS: Bilirubin Urine Neg (Negative); Blood Urine Neg (Negative); Glucose Urine UA Norm (Normal); Ketones Urine Negative (Negative); Leukocyte Esterase Urine Negative (Negative); Nitrate Urine Negative (Negative); Protein Urine Neg (Negative); Sulfosalicylic Acid Urine Negative (Negative); Urobilinogen Urine Norm (Negative); pH Urine 8 (5-7)
[2022-09-18 08:05] VITALS: BP 116/61; PULSE 67; O2SAT 97
== END 2022-09-18 08:05 | disposition home or self-care (01) ==
PROVIDERS: Emergency Provider Family Medicine; PCP Emergency Medicine Emergency Medical Services
DX: G45.9 Transient cerebral ischemic attack, unspecified (principal); Z79.82 Long term (current) use of aspirin; J44.9 Chronic obstructive pulmonary disease, unspecified; Z87.891 Personal history of nicotine dependence
CPT/HCPCS: 80053; 81003; 85025; 93005; 99284

== ENCOUNTER → 2022-10-11 12:28 | Outpatient (BNVA) | payer OTHER, SELFPAY | PROVIDERS: PCP Emergency Medicine Emergency Medical Services; Visit Provider Internal Medicine | DX: R00.1 Bradycardia, unspecified (principal); R94.31 Abnormal electrocardiogram [ECG] [EKG]; J44.9 Chronic obstructive pulmonary disease, unspecified; I73.9 Peripheral vascular disease, unspecified; Z79.01 Long term (current) use of anticoagulants; Z87.891 Personal history of nicotine dependence | CPT/HCPCS: 99214 ==

== ENCOUNTER 2023-02-28 15:07 | Outpatient (CLI) | payer OTHER, SELFPAY | END 2023-02-28 15:08 | disposition home or self-care (01) | LOC: LAB 15:13 | PROVIDERS: PCP Emergency Medicine Emergency Medical Services; Visit Provider Internal Medicine Pulmonary Disease | DX: R91.8 Other nonspecific abnormal finding of lung field (principal); J43.1 Panlobular emphysema; J84.10 Pulmonary fibrosis, unspecified; J98.4 Other disorders of lung | CPT/HCPCS: 87070; 87205 ==

== ENCOUNTER 2023-02-28 16:26 | Emergency (ER) | payer OTHER, SELFPAY ==
[2023-02-28 16:38] VITALS: BP 114/68; PULSE 94; RESP 15; TEMP 36.8; O2SAT 95; BMI 15.0
--- NOTE | 2023-02-28 16:42 | XRR_ITS ---
PROCEDURE INFORMATION: Exam: XR Chest Exam date and time: 02/28/2023 5:24 PM Age: 77 years old Clinical indication: Pain and condition or disease; Lung condition and disease; Other: U/n; Patient HX: SOB, copd, asbestosis 7 years; Additional info: Chest pain TECHNIQUE: Imaging protocol: Radiologic exam of the chest. Views: 1 view. COMPARISON: CR (CHEST, ) 09/15/2022 12:52 PM FINDINGS: Lungs: Hyperinflated lungs redemonstrated with fibrotic changes and elevation of the hemidiaphragms, similar to the prior examination. New irregular opacities along the periphery of the right mid lung field and right lower lobe. Pleural spaces: Unremarkable. No pleural effusion. No pneumothorax. Heart/Mediastinum: Unremarkable. No cardiomegaly. Bones/joints: Unremarkable. XR/XR chest 1V portable [id number] IMPRESSION: 1. Hyperinflated lungs redemonstrated with fibrotic changes and elevation of the hemidiaphragms, similar to the prior examination. 2. New irregular opacities along the periphery of the right mid lung field and right lower lobe.
--- NOTE | 2023-02-28 16:42 | ECG_ITS ---
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 Measurements Intervals [place] Rate: 90 P: 80 [place]: 177 QRS: 83 QRSD: 90 T: 52 QT: 338 QTc: 414 Interpretive Statements SINUS RHYTHM POSSIBLE RIGHT ATRIAL ENLARGEMENT [0.25mV P-WAVE] LEFT ATRIAL ENLARGEMENT [-0.15mV P-WAVE IN V1/V2] Compared to ECG 09/18/2022 06:32:04 Atrial abnormality now present Myocardial infarct finding no longer present Electronically Signed On 02-28-2023 21:34:28 CDT by Grzegorz Damon M.D. [id number]
[2023-02-28 17:28] LABS: Basophils # 0.1 10^3/uL (0.0-0.1); Basophils % 0.6 %; Eosinophils # 0.6 10^3/uL (0.0-0.8); Eosinophils % 3.8 %; Hematocrit 37.7 % (37-53); Lymphocytes # 1.6 10^3/uL (0.8-4.8); Lymphocytes % 10.6 %; Mean Corpuscular HGB Conc 31.6 g/dL (30-55); Mean Corpuscular Hemoglobin 30.4 pg (27-33); Mean Corpuscular Volume 96.4 fl (82-101); Mean Platelet Volume 8.3 fL (7.4-10.4); Monocytes # 1.2 10^3/uL (0.2-0.9); Monocytes % 7.5 %; Neutrophils # 11.81 10^3/uL (1.8-7.7); Neutrophils % 76.8 %; Nucleated Red Blood Cells % 0 %; Platelet Count 480 10^3/cmm (157-399); Red Blood Count 3.91 10^6/uL (3.85-5.65); Red Cell Distribution Width 15.3 % (12.1-15.1); White Blood Count 15.37 10^3/uL (3.29-11.43)
[2023-02-28 17:49] LABS: Troponin(5th) Baseline 7 ng/L (0-15)
[2023-02-28 18:13] LABS: Alanine Aminotransferase 10 U/L (0-41); Albumin Level 3.9 g/dL (3.5-5.2); Alkaline Phosphatase 111 U/L (40-130); Anion Gap 14.9 (5-19); Aspartate Amino Transferase 15 U/L (0-40); Blood Urea Nitrogen 20 mg/dL (8-23); Calcium 9.3 mg/dL (8.5-10.5); Carbon Dioxide 30 mmol/L (22-29); Chloride 101 mmol/L (98-107); Globulin 3.1 g/dL (1.3-4.6); Glucose 87 mg/dL (65-115); NT Pro B Type Natriuretic Pept 256 pg/mL (0-450); Osmolality Calculated 294 mOsm/kg (285-295); Potassium 4.9 mmol/L (3.5-5.1); Sodium 141 mmol/L (136-145); Total Bilirubin 0.4 mg/dL (0.15-1.2)
--- NOTE | 2023-02-28 19:12 | W.ED.SOB ---
HPI - SOB/Dyspnea General: Chief Complaint: Shortness of Breath/Dyspnea Stated Complaint: abnormal ekg sent from de Time Seen by Provider: 02/28/23 19:10 History of Present Illness: HPI Narrative: 77-year-old male patient comes in today for some complaints of abnormal EKG that was noted at the physician's office. Patient states they got into his physician's office to see about getting some home oxygen and it was noted his EKG was abnormal. Patient was recommended to come to the ER for further evaluation. Patient states his shortness of breath is no worse than usual. Patient does have a history of chronic lung disease with asbestosis and COPD. 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 Patient recently been on antibiotics for pneumonia. Patient reports improvement of pneumonia symptoms with clearing of sputum. Patient appears nontoxic. Patient appears in no pain. Review of Systems General: Reports: 10 or more systems reviewed and unremarkable except in HPI and below Card: Reports: other (Abnormal EKG) Resp: Reports: dyspnea PFSH ED PFSH: Medical History Abnormal ECG BPH (benign prostatic hyperplasia) Colon polyps COPD (chronic obstructive pulmonary disease) Dysphagia Esophageal dilatation GERD (gastroesophageal reflux disease) PAD (peripheral artery disease) S/P angiogram of extremity Surgical History History of esophagogastroduodenoscopy (EGD) History of tonsillectomy and adenoidectomy Hx of colonoscopy over 5 yrs ago-no polyps Family History Father , at age 75 Cancer colon Mother , at age 86 Alzheimer disease Social History Smoking and tobacco/nicotine status: former use of tobacco/nicotine Alcohol intake: current Alcohol intake frequency: 0-2 Drinks per Day Substance/Drug Use: former Marital status: Current occupational status: retired and disabled Physical Exam Const: COMMON NORMALS: alert HENMT: COMMON NORMALS: normocephalic HEAD & SCALP: normocephalic Neck/C-Spine: COMMON NORMALS: full ROM Resp: COMMON NORMALS: normal respiratory effort AUSCULTATION: diminished lung sounds Cardio: COMMON NORMALS: regular rate and regular rhythm RATE: regular rate RHYTHM: regular rhythm Back/Pelvis: COMMON NORMALS: thoracic and lumbar spine normal to inspection Extremity: COMMON NORMALS: normal to inspection, full ROM and no pedal edema Neuro: SENSORIUM/ORIENTATION: Yes alert Skin: COMMON NORMALS: turgor normal GENERAL SKIN EXAM: turgor normal Course Vital Signs: Vital signs: Vital Signs Temperature 98.2 F 02/28/23 16:38 Pulse Rate 80 02/28/23 19:17 Respiratory Rate 18 02/28/23 19:17 Blood Pressure 128/88 02/28/23 19:17 Pulse Oximetry 97 02/28/23 19:17 Oxygen Delivery Me thod Room Air 02/28/23 16:38 MDM - SOB/Dyspnea Medical Decision Making 77-year-old male patient comes in today with no new complaints. Patient was referred to the ER for further evaluation due to an abnormal EKG. EKG showed some right atrial enlargement of left atrial enlargement without significant ST elevation or ectopy. Patient has chronic shortness of breath. Patient denies any chest pain. Vital signs are normal. Differential diagnosis includes but not limited to ACS, pneumonia, COPD, lung cancer, CHF. Laboratory values were unremarkable except for some mild leukocytosis with 15,000 white count. CMP was unremarkable except for carbon dioxide level at 30. Troponin and BNP were within normal range. Chest x-rays noted some right lower lung markings increased to just may be a infiltrate. Although this may be secondary to patient's recent pneumonia on the chest x-ray we will go ahead and cover with Levaquin for 5 more days due to patient's elevated white blood cell count. No other signs of distress or respiratory failure noted at this time. Patient was stable and agreed to plan and was discharged home with recommendations for follow-up. Lab Data 02/28/23 17:21 02/28/23 17:21 Labs/Radiology: Radiology Impressions Chest X-Ray 02/28/23 16:42 IMPRESSION: 1. Hyperinflated lungs redemonstrated with fibrotic changes and elevation of the hemidiaphragms, similar to the prior examination. 2. New irregular opacities along the periphery of the right mid lung field and right lower lobe. Laboratory Results WBC 15.37 10^3/uL (3.29-11.43) H 02/28/23 17:21 RBC 3.91 10^6/uL (3.85-5.65) 02/28/23 17:21 Hgb 11.90 g/dL (11.27-16.99) 02/28/23 17:21 Hct 37.7 % (37-53) 02/28/23 17:21 MCV 96.4 fl (82-101) 02/28/23 17:21 MCH 30.4 pg (27-33) 02/28/23 17:21 MCHC 31.6 g/dL (30-55) 02/28/23 17:21 RDW 15.3 % (12.1-15.1) H 02/28/23 17:21 Plt Count 480 10^3/cmm (157-399) H 02/28/23 17:21 MPV 8.3 fL (7.4-10.4) 02/28/23 17:21 Neut % (Auto) 76.8 % 02/28/23 17: Lymph % (Auto) 10.6 % 02/28/23 17:21 [place] % (Auto) 7.5 % 02/28/23 17:21 Eos % (Auto) 3.8 % 02/28/23 17:21 Baso % (Auto) 0.6 % 02/28/23 17: Neut # (Auto) 11.81 10^3/uL (1.8-7.7) H 02/28/23 17:21 Lymph # (Auto) 1.6 10^3/uL (0.8-4.8) 02/28/23 17:21 [place] # (Auto) 1.2 10^3/uL (0.2-0.9) H 02/28/23 17:21 Eos # (Auto) 0.6 10^3/uL (0.0-0.8) 02/28/23 17:21 Baso # (Auto) 0.1 10^3/uL (0.0-0.1) 02/28/23 17:21 Nucleated RBC % (auto) 0 % 02/28/23 17: Nucleated RBCs # 0.0 /100WBC 02/28/23 17:21 Sodium 141 mmol/L (136-145) 02/28/23 17:21 Potassium 4.9 mmol/L (3.5-5.1) 02/28/23 17:21 Chloride 101 mmol/L (98-107) 02/28/23 17:21 Carbon Dioxide 30 mmol/L (22-29) H 02/28/23 17:21 Anion Gap 14.9 (5-19) 02/28/23 17:21 BUN 20 mg/dL (8-23) 02/28/23 17:21 Creatinine 0.6 mg/dL (0.7-1.2) L 02/28/23 17:21 GFR Calculation Not Reportable 02/28/23 17:21 Glucose 87 mg/dL (65-115) 02/28/23 17:21 Calculated Osmolality 294 mOsm/kg (285-295) 02/28/23 17:21 Calcium 9.3 mg/dL (8.5-10.5) 02/28/23 17:21 Total Bilirubin 0.4 mg/dL (0.15-1.2) 02/28/23 17:21 AST 15 U/L (0-40) 02/28/23 17:21 ALT 10 U/L (0-41) 02/28/23 17:21 Alkaline Phosphatase 111 U/L (40-130) 02/28/23 17:21 Troponin T Baseline 7 ng/L (0-15) 02/28/23 17:21 NT-Pro-B Natriuret Pep 256 pg/mL (0-450) 02/28/23 17:21 Total Protein 7.0 g/dL (6.6-8.7) 02/28/23 17:21 Albumin 3.9 g/dL (3.5-5.2) 02/28/23 17:21 Globulin 3.1 g/dL (1.3-4.6) 02/28/23 17:21 All radiology interpretation(s) finalized by discharge EKG Data EKG 1: EKG Interpretation Date: 02/28/23 EKG interpretation time: 19:42 Prior EKG tracings: available for review Interpretation: EKG showed a sinus rhythm with a regular rate [address] elevation or ectopy is noted. Artifact was noted on the EKG. Compared to initial exam no changes were noted. Computer Generated Interpretation: Sinus rhythm, possible right atrial enlargement, left atrial enlargement, abnormal EKG, unconfirmed report. Discharge Plan Discharge Patient Disposition: Home Clinical Impression: Pneumonia Qualifiers: Pneumonia type: due to unspecified organism Laterality: right Lung location: lower lobe of lung Qualified Code(s): J18.9 - Pneumonia, unspecified organism Condition: Stable Prescriptions: New levofloxacin 500 mg tablet 500 mg PO DAILY 5 Days Qty: 5 0RF No Action guaifenesin 400 mg tablet 400 mg PO Q4H potassium chloride 10 mEq capsule, extended release 10 meq PO BID albuterol sulfate [ProAir HFA] 90 mcg/actuation HFA aerosol inhaler 2 puff INHALATION Q6H PRN (Reason: Shortness Of Breath) aspirin [Adult Aspirin Regimen] 81 mg tablet,delayed release (DR/EC) 81 mg PO DAILY Spiriva Respimat 1.25 mcg/actuation mist 2 puff INHALATION Q24H cholecalciferol (vitamin D3) 3,000 unit tablet 3,000 unit PO DAILY ascorbate calcium (vitamin C) 500 mg tablet 500 mg PO DAILY clopidogrel 75 mg tablet 75 mg PO DAILY Qty: 90 3RF atorvastatin 40 mg tablet 40 mg PO DAILY Qty: 90 3RF prednisone 5 mg Tablet 5 mg PO DAILY acetaminophen 500 mg Tablet 1,000 mg PO Q6H PRN (Reason: Pain) Benadryl 25 mg Capsule 25 mg PO BEDTIME echinacea 500 mg Capsule 500 mg PO DAILY PRN (Reason: Pain) Rx Instructions: administer with meals Discharge Orders: Discharge ED (Routine); Ordered 02/28/23 Ordered By: Hollis Lebron Referrals: Rito Montero DO [Primary Care Provider] - Discharge Diet: Usual diet Discharge Activity: Increase activity as tolerated Patient Instructions: Pneumonia (ED) Activity Restrictions/Additional Instructions: Continue Levaquin for 5 more days. Healthy diet and activity. Follow-up with primary care as needed. Return to emergency department for worsening symptoms such as increased shortness of breath, severe chest pain, or fever greater than 100.4. Coding Level of Care Code ED Help Desk Consultant for Glo Elena
[2023-02-28 19:17] VITALS: BP 128/88; PULSE 80; RESP 18; O2SAT 97
[2023-02-28] MEDS: levoFLOXacin 500 mg Tablet PO (19:36)
[2023-02-28 19:43] VITALS: BP 99/63; PULSE 70; RESP 25; O2SAT 96
--- NOTE | 2023-02-28 22:42 | ECG_ITS ---
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 Measurements Intervals [place] Rate: 81 P: 80 [place]: 179 QRS: 84 QRSD: 98 T: 62 QT: 356 QTc: 415 Interpretive Statements SINUS RHYTHM POSSIBLE RIGHT ATRIAL ENLARGEMENT [0.25mV P-WAVE] LEFT ATRIAL ENLARGEMENT [-0.15mV P-WAVE IN V1/V2] Compared to ECG 02/28/2023 16:47:40 No significant changes Electronically Signed On 02-28-2023 21:40:30 CDT by Grzegorz Damon M.D. [id number]
== END 2023-02-28 19:52 | disposition home or self-care (01) ==
PROVIDERS: Emergency Provider Nurse Practitioner Family; PCP Emergency Medicine Emergency Medical Services
DX: J44.0 Chronic obstructive pulmonary disease with (acute) lower respiratory infection (principal); J18.9 Pneumonia, unspecified organism; Z79.02 Long term (current) use of antithrombotics/antiplatelets; Z79.82 Long term (current) use of aspirin; Z87.891 Personal history of nicotine dependence
CPT/HCPCS: 36415; 71045; 80053; 83880; 84484; 85025; 93005; 99285

== ENCOUNTER 2023-03-01 08:05 | Outpatient (CLI) | payer OTHER, SELFPAY | END 2023-03-01 08:06 | disposition home or self-care (01) | LOC: LAB 08:13 | PROVIDERS: PCP Emergency Medicine Emergency Medical Services; Visit Provider Internal Medicine Pulmonary Disease | DX: J84.10 Pulmonary fibrosis, unspecified (principal); J43.1 Panlobular emphysema; G47.33 Obstructive sleep apnea (adult) (pediatric); J98.4 Other disorders of lung; R91.8 Other nonspecific abnormal finding of lung field | CPT/HCPCS: 87015; 87070; 87116; 87206; 87801 ==

== ENCOUNTER 2023-03-02 09:09 | Outpatient (CLI) | payer OTHER, SELFPAY | END 2023-03-02 09:10 | disposition home or self-care (01) | PROVIDERS: PCP Emergency Medicine Emergency Medical Services; Visit Provider Internal Medicine Pulmonary Disease | DX: G47.33 Obstructive sleep apnea (adult) (pediatric) (principal); J43.1 Panlobular emphysema; J84.10 Pulmonary fibrosis, unspecified; J98.4 Other disorders of lung; R91.8 Other nonspecific abnormal finding of lung field | CPT/HCPCS: 87015; 87116; 87206; 87801 ==

== ENCOUNTER → 2023-03-28 12:12 | Outpatient (BNVA) | payer OTHER, SELFPAY | PROVIDERS: PCP Emergency Medicine Emergency Medical Services; Visit Provider Internal Medicine | DX: R00.1 Bradycardia, unspecified (principal); R94.31 Abnormal electrocardiogram [ECG] [EKG]; J44.9 Chronic obstructive pulmonary disease, unspecified; I73.9 Peripheral vascular disease, unspecified; Z87.891 Personal history of nicotine dependence | CPT/HCPCS: 99214 ==

== ENCOUNTER 2023-04-19 11:00 | Emergency (ER) | payer OTHER, SELFPAY ==
[2023-04-19 11:14] VITALS: BP 102/65; PULSE 84; RESP 17; TEMP 36.4; O2SAT 95; BMI 15.7
[2023-04-19 11:20] VITALS: BP 119/64; PULSE 80; O2SAT 97
--- NOTE | 2023-04-19 11:20 | XR_ITS ---
WS: [id number] Portable AP upright chest, 04/19/2023 Clinical Data: cough Comparison: Portable chest, 02/28/2023 Findings: There are interstitial fibrotic changes throughout both lungs with small granulomas. The di aphragms are flattened and slightly elevated. There is apical pleural thickening. The heart is normal . The aortic arch shows calcification and tortuosity. The trachea is enlarged and deviated to the rig ht at the level of the thoracic inlet. 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
[2023-04-19 11:45] LABS: Basophils # 0.1 10^3/uL (0.0-0.1); Basophils % 0.7 %; Eosinophils # 0.5 10^3/uL (0.0-0.8); Eosinophils % 4.9 %; Hematocrit 43.8 % (37-53); Lymphocytes # 1.5 10^3/uL (0.8-4.8); Mean Corpuscular HGB Conc 31.1 g/dL (30-55); Mean Corpuscular Hemoglobin 30.7 pg (27-33); Mean Corpuscular Volume 98.9 fl (82-101); Mean Platelet Volume 9.4 fL (7.4-10.4); Monocytes # 1.2 10^3/uL (0.2-0.9); Monocytes % 11.3 %; Neutrophils % 68.6 %; Nucleated Red Blood Cells % 0 %; Platelet Count 349 10^3/cmm (157-399); Red Blood Count 4.43 10^6/uL (3.85-5.65); White Blood Count 10.35 10^3/uL (3.29-11.43)
[2023-04-19] MEDS: clopidogrel 75 mg Tablet PO (11:54)
[2023-04-19] MEDS: methylPREDNISolone sod succ 125 mg/2 mL INJ IVP (11:58)
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
[2023-04-19 12:04] LABS: Alanine Aminotransferase 7 U/L (0-41); Albumin Level 3.1 g/dL (3.5-5.2); Alkaline Phosphatase 115 U/L (40-130); Anion Gap 15.4 (5-19); Aspartate Amino Transferase 17 U/L (0-40); Blood Urea Nitrogen 17 mg/dL (8-23); Calcium 9.2 mg/dL (8.5-10.5); Carbon Dioxide 22 mmol/L (22-29); Chloride 101 mmol/L (98-107); Creatinine Clr Calc Pharmacy 55.4389; Globulin 4.3 g/dL (1.3-4.6); Glucose 90 mg/dL (65-115); Osmolality Calculated 279 mOsm/kg (285-295); Potassium 4.4 mmol/L (3.5-5.1); Sodium 134 mmol/L (136-145); Total Bilirubin 0.4 mg/dL (0.15-1.2); Total Protein 7.4 g/dL (6.6-8.7)
[2023-04-19] MEDS: ipratropium-albuterol 3 mL Neb INHALATION (12:10)
[2023-04-19 12:11] VITALS: PULSE 76; RESP 16; O2SAT 96
[2023-04-19 12:12] VITALS: BP 94/65; O2SAT 99
[2023-04-19 12:15] VITALS: PULSE 72
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
[2023-04-19 13:09] VITALS: BP 99/53; PULSE 61; RESP 18; O2SAT 92
--- NOTE | 2023-04-19 15:15 | PC.NURSE ---
NURSE WAS PREPARING TO GIVE PATIEN HIS MEDICATION AND PT ASKED WHAT IT WAS FOR. NURSE TOLD HIM THAT CLOPIDOGREL WAS TO PREVENT HIM TO CLOT SINCE HE HAD HX OF PE AND THIS WAS TO PREVENT ANYTHING BAD LIKE THAT TO HAPPEN. PT STATES THAT IF SOEMTHING BAD HAPPENED TO HIM THAT IT WOULD BE OKAY. NURSE PROVIDED THERAPEUTIC COMMUNICATION PROVIDED. NURSE NOTIFIED PROVIDER.
--- NOTE | 2023-04-19 15:21 | PC.NURSE ---
PT MADE STATEMENTS TO NURSE, ROB HURD, IN REGARDS TO WANTING TO BE WITH HIS RECENTLY . PT STATES THAT HE IS OK WITH DYING. THIS NURSE AND ROB PRESENT AT BEDSIDE PROVIDING THERAPEUTIC COMMUNICATION AND COMMUNITY OPTIONS FOR HELP. PATIENT STATES THAT HE IS A ANABAPTISM AND WOULDN'T COMMIT SUICIDE BECAUSE IT WOULD MEAN I CAN'T BE WITH HER. PATIENT REDIRECTED THAT OPTIONS ARE AVAILABLE INCLUDING SMALL GROUPS AND [facility]. PATIENT STATES THAT HE DOES NOT WANT EITHER. PATIENT STATES THAT HE JUST WANTS TO GO BACK HOME AND START REBUILDING. PATIENT STATES THAT HE HAS A GOOD SUPPORT SYSTEM. PATIENT LIVING WITH SON AND HAS A GOOD FRIEND WHO CHECKS ON HIM. PROVIDER NOTIFIED.
== END 2023-04-19 15:29 | disposition home or self-care (01) ==
PROVIDERS: Emergency Provider Emergency Medicine; PCP Emergency Medicine Emergency Medical Services
DX: J44.9 Chronic obstructive pulmonary disease, unspecified (principal); J06.9 Acute upper respiratory infection, unspecified; Z87.891 Personal history of nicotine dependence
CPT/HCPCS: 36415; 71045; 80053; 85025; 94640; 96374; 99285; J2930

== ENCOUNTER 2023-06-27 13:24 | Emergency (ER) | payer OTHER, SELFPAY ==
[2023-06-27 13:25] VITALS: BP 108/75; PULSE 95; RESP 16; TEMP 36.1; O2SAT 93; BMI 16.7
--- NOTE | 2023-06-27 14:00 | XRR_ITS ---
PROCEDURE INFORMATION: Exam: XR Chest Exam date and time: 06/27/2023 2:14 PM Age: 78 years old Clinical indication: Cough and shortness of breath; Patient HX: HX pleural/lung TECHNIQUE: Imaging protocol: Radiologic exam of the chest. Views: 1 view. COMPARISON: CR XR chest 1V portable [id number] 04/19/2023 12:09 PM FINDINGS: Lungs: Severe emphysematous COPD. Extensive parenchymal fibrosis greatest in the apices. Stable blunting of the costophrenic angles, right greater than left. Pleural spaces: See Lungs finding. Heart/Mediastinum: Unremarkable. No cardiomegaly. Bones/joints: Unremarkable. XR/XR chest 1V portable [id number] IMPRESSION: 1. No acute findings. 2. Extensive chronic lung disease.
--- NOTE | 2023-06-27 15:12 | ED_ITS ---
HPI - Allergic Reaction General: Chief complaint: Allergic Reaction Stated complaint: sob, itching eyes Time Seen by Provider: 06/27/23 14:06 Source: patient Mode of arrival: ambulatory Limitations: no limitations History of Present Illness: HPI narrative: 78-year-old male has a history of chroni c lung disease he has been on rifampin states that his manufacturing technologist started him on ethambualol states that since then he has had some dyspnea along with itching eyes he states he skipped his dose today and he feels much improved he denies any chest pain denies any fevers he is in no distress currently Associated symptoms: Deny abdominal pain, nausea or vomiting Review of Systems Const: Denies: fever(s), chills, body aches or change in appetite Eyes: Denies: blurry vision ENMT: Denies: throat pain or dental pain Card: Denies: chest pain Resp: Reports: dyspnea GI: Denies: abdominal pain, nausea, vomiting or diarrhea Musc: Denies: neck pain or back pain Skin/Breast: Denies: rash Neuro: Denies: headache(s) PFSH ED PFSH: Medical History Abnormal ECG Dysphagia Colon polyps Esophageal dilatation BPH (benign prostatic hyperplasia) GERD (gastroesophageal reflux disease) S/P angiogram of extremity PAD (peripheral artery disease) COPD (chronic obstructive pulmonary disease) Surgical History History of esophagogastroduodenoscopy (EGD) Hx of colonoscopy over 5 yrs ago-no polyps History of tonsillectomy and adenoidectomy Family History Father , at age 75 Cancer colon Mother , at age 86 Alzheimer disease Social History Smoking and tobacco/nicotine status: former use of tobacco/nicotine Alcohol intake: current Alcohol intake frequency: 0-2 Drinks per Day Substance/Drug Use: former Marital status: Current occupational status: retired and disabled Physical Exam Const: COMMON NORMALS: no acute distress, patient oriented x3 and healthy appearing HENMT: COMMON NORMALS: normocephalic and atraumatic HEAD & SCALP: normocephalic and atraumatic Eye: COMMON NORMALS: Equal, round and reactive pupils present and EOMs intact bilaterally PUPIL: Yes Equal, round and reactive pupils present Neck/C-Spine: COMMON NORMALS: full ROM and supple Chest: COMMONS NORMALS: normal inspection of the chest and normal palpation of entire chest wall Resp: COMMON NORMALS: normal respiratory effort, No retractions, No use of accessory muscles and clear to auscultation bilaterally AUSCULTATION: clear to auscultation bilaterally Cardio: COMMON NORMALS: regular rate, regular rhythm and No murmurs present (Cardio) RATE: regular rate RHYTHM: regular rhythm Extremity: COMMON NORMALS: normal to inspection and full ROM Neuro: COMMON NORMALS: patient oriented x3, moves all extremities and no focal motor deficits Psych: COMMON NORMALS: mental status grossly normal, Normal thought process present and cooperative THOUGHT PROCESS: Normal thought process present Skin: COMMON NORMALS: no rashes or lesions noted and no wounds GENERAL SKIN EXAM: no rashes or lesions noted Course Vital Signs: Vital signs: Vital Signs Temperature 96.9 F L 06/27/23 13:25 Pulse Rate 95 06/27/23 13:25 Respiratory Rate 16 06/27/23 13:25 Blood Pressure 108/75 06/27/23 13:25 Pulse Oximetry 93 06/27/23 13:25 Oxygen Delivery Me thod Room Air 06/27/23 13:25 MDM - Allergic Reaction Medical Decision Making Patient presents for some mild dyspnea x-ray shows no acute findings his vitals here are all normal he is to talk to his manufacturing technologist about his medication he is stable for discharge return if worsening Lab Data Radiology Impressions Chest X-Ray 06/27/23 14:00 IMPRESSION: 1. No acute findings. 2. Extensive chronic lung disease. All radiology interpretation(s) finalized by discharge Discharge Plan Discharge Patient Disposition: Home Clinical Impression: Medication reaction, Dyspnea Condition: Stable Prescriptions: No Action albuterol sulfate [ProAir HFA] 90 mcg/actuation HFA aerosol inhaler 2 puff INHALATION Q6H PRN (Reason: Shortness Of Breath) prednisone 5 mg Tablet 5 mg PO DAILY diphenhydramine HCl [Benadryl] 25 mg Capsule 25 mg PO BEDTIME echinacea 500 mg Capsule 500 mg PO DAILY PRN (Reason: unknown) Rx Instructions: administer with meals fluticasone propion-salmeterol 250-50 mcg/dose Blister With Device 1 inh INHALATION BID albuterol sulfate 2.5 mg /3 mL (0.083 %) Solution For Nebulization 2.5 mg INHALATION Q6H PRN (Reason: Shortness Of Breath) Vitamin C 500 mg Tablet 500 mg PO DAILY potassium citrate 10 mEq (1,080 mg) Tablet Extended Release 10 meq PO BID folic acid 1 mg Tablet 1 mg PO DAILY Flonase 50 mcg/actuation [place],Suspension 2 spray INTRANASAL BEDTIME Triple [place] 3-6-9 400-400-400 mg Capsule 1 cap PO DAILY Vitamin D3 125 mcg (5,000 unit) Tablet 125 mcg PO DAILY ferrous gluconate 324 mg (37.5 mg iron) Tablet 324 mg PO DAILY tiotropium bromide 2.5 mcg/actuation Mist 2 puff INHALATION DAILY turmeric 400 mg Capsule 400 mg PO DAILY ciprofloxacin HCl 500 mg tablet 250 mg PO Q12H Qty: 20 0RF Discharge Orders: Discharge ED (Routine); Ordered 06/27/23 Ordered By: Dada Garcia Referrals: Rito Montero DO [Primary Care Provider] - 1-3 days Discharge Diet: Advance as tolerated Discharge Activity: Resume usual activity Patient Instructions: Dyspnea (ED) Coding Level of Care Code ED [employer] for [employer]
[2023-06-27] MEDS: dexamethasone 10 mg/mL INJ IM (15:26)
== END 2023-06-27 17:55 | disposition home or self-care (01) ==
PROVIDERS: Emergency Provider Emergency Medicine; PCP Emergency Medicine Emergency Medical Services
DX: R06.00 Dyspnea, unspecified (principal); T37.1X5A Adverse effect of antimycobacterial drugs, initial encounter; Z87.891 Personal history of nicotine dependence; J44.9 Chronic obstructive pulmonary disease, unspecified
CPT/HCPCS: 71045; 96372; 99284; J1100

== ENCOUNTER 2023-06-30 14:11 | Emergency (ER) | payer OTHER, SELFPAY ==
[2023-06-30 14:24] VITALS: BP 135/80; PULSE 99; RESP 16; TEMP 36.7; O2SAT 94; BMI 15.3
--- NOTE | 2023-06-30 14:42 | XRR_ITS ---
PROCEDURE INFORMATION: Exam: XR Chest Exam date and time: 06/30/2023 3:03 PM Age: 78 years old Clinical indication: Patient HX: Increased sob/dyspnea; HX copd, asbestos lung TECHNIQUE: Imaging protocol: Radiologic exam of the chest. Views: 1 view. COMPARISON: CR XR chest 1V portable [id number] 06/27/2023 2:14 PM FINDINGS: Lungs: Curvilinear bilateral opacities and marked emphysematous lung changes. Consistent with the history of COPD. Pleural spaces: Bilateral apical pleural thickening. Small right-sided pleural effusion. Heart/Mediastinum: Unremarkable. No cardiomegaly. Bones/joints: Unremarkable. XR/XR chest 1V portable [id number] IMPRESSION: 1. No acute interval changes. 2. Marked emphysematous lung changes.
[2023-06-30 15:06] LABS: Basophils # 0.1 10^3/uL (0.0-0.1); Basophils % 0.5 %; Eosinophils # 0.7 10^3/uL (0.0-0.8); Eosinophils % 4.9 %; Hematocrit 40.8 % (37-53); Lymphocytes # 1.3 10^3/uL (0.8-4.8); Lymphocytes % 8.7 %; Mean Corpuscular HGB Conc 31.6 g/dL (30-55); Mean Corpuscular Hemoglobin 30.2 pg (27-33); Mean Corpuscular Volume 95.6 fl (82-101); Mean Platelet Volume 8.6 fL (7.4-10.4); Monocytes # 1.1 10^3/uL (0.2-0.9); Neutrophils # 11.78 10^3/uL (1.8-7.7); Neutrophils % 78.2 %; Nucleated Red Blood Cells % 0 %; Platelet Count 472 10^3/cmm (157-399); Red Blood Count 4.27 10^6/uL (3.85-5.65); White Blood Count 15.05 10^3/uL (3.29-11.43)
[2023-06-30 15:19] LABS: INR 1.06 (0.8-1.2)
[2023-06-30 15:39] LABS: Alanine Aminotransferase 10 U/L (0-41); Albumin Level 3.5 g/dL (3.5-5.2); Alkaline Phosphatase 144 U/L (40-130); Anion Gap 13.1 (5-19); Aspartate Amino Transferase 14 U/L (0-40); Blood Urea Nitrogen 15 mg/dL (8-23); Calcium 8.9 mg/dL (8.5-10.5); Carbon Dioxide 29 mmol/L (22-29); Chloride 98 mmol/L (98-107); Creatinine Clr Calc Pharmacy 54.5727; Globulin 4.2 g/dL (1.3-4.6); Glucose 155 mg/dL (65-115); NT Pro B Type Natriuretic Pept 93 pg/mL (0-450); Osmolality Calculated 286 mOsm/kg (285-295); Potassium 4.1 mmol/L (3.5-5.1); Sodium 136 mmol/L (136-145); Total Bilirubin 0.2 mg/dL (0.15-1.2); Total Protein 7.7 g/dL (6.6-8.7)
--- NOTE | 2023-06-30 16:43 | ED_ITS ---
HPI - SOB/Dyspnea 2 General: Chief Complaint: Shortness of Breath/Dyspnea Stated Complaint: sob Time Seen by Provider: 06/30/23 14:33 History of Present Illness: HPI Narrative: 78-year-old male presents to the emergen cy department with complaints of feeling like he has increased shortness of breath and increased exertional dyspnea. He states he has been seen by his [place] medical physician and is taking rifampin and ethambutol and azithromycin. He states that he has had a history of tuberculosis but states that he looked on the Internet and knows that it is not active. He states he feels like the medications that his physician has prescribed him are killing him but is unable to describe exactly what he means. He states he does have chest pressure but only when coughing and when he is coughing stuff up. He denies fevers chills or night sweats. He states he has become progressively fatigued and weak over the previous 6 days. He states he stopped taking his rifampin and ethambutol and azithromycin 3 days ago and did so without his physician approval. He does not appear to be having labored breathing at present. He denies active chest pain. Review of Systems 2 General: Reports: 10 or more systems reviewed and unremarkable except in HPI and below Const: Reports: fatigue and malaise Resp: Reports: dyspnea and productive cough PFSH ED 2 PFSH: Medical History Abnormal ECG Dysphagia Colon polyps Esophageal dilatation BPH (benign prostatic hyperplasia) GERD (gastroesophageal reflux disease) S/P angiogram of extremity PAD (peripheral artery disease) COPD (chronic obstructive pulmonary disease) Surgical History History of esophagogastroduodenoscopy (EGD) Hx of colonoscopy over 5 yrs ago-no polyps History of tonsillectomy and adenoidectomy Family History Father , at age 75 Cancer colon Mother , at age 86 Alzheimer disease Social History Smoking and tobacco/nicotine status: former use of tobacco/nicotine Alcohol intake: current Alcohol intake frequency: 0-2 Drinks per Day Substance/Drug Use: former Marital status: Current occupational status: retired and disabled Physical Exam 2 Narrative: EXAM NARRATIVE: Constitutional: the patient appears well nourished and of normal development. Vital signs as documented. No acute distress at present. Alert and oriented-to person, place, time and situation. Head, eyes, ears, nose, mouth, throat: Normocephalic, atraumatic. Pupils-equal, round, reactive to light. No scleral icterus. Normal-appearing external ears. Normal appearing nasal turbinates, no drainage. No obvious oral lesions, posterior oropharynx without erythema or exudates. Neck: Supple, trachea is midline, no lymphadenopathy, no jugular venous distension, thyromegaly, or carotid bruits. Carotid upstrokes are brisk bilaterally. Lungs: Prolonged expiratory phase noted. Symmetrical rise and fall of chest, no obvious signs of increased work of breathing at present. Cardiac: Regular rate and rhythm, positive S1, S2. No murmurs, rubs or gallops that I can appreciate Abdomen: Soft, non-tender to palpation, normal active bowel sounds to all quadrants. No palpable masses, no organomegaly and abdominal bruits. Extremities: 2+ pulses in the upper extremities that are equal bilaterally, 2+ pulses in the lower extremities that are equal bilaterally. Non-edematous. Moves all extremities well, sensation to all extremities are noted. Skin: Warm, dry, intact. Course 2 Vital Signs: Vital signs: Vital Signs Temperature 98.1 F 06/30/23 14:24 Pulse Rate 99 06/30/23 14:24 Respiratory Rate 16 06/30/23 14:24 Blood Pressure 135/80 06/30/23 14:24 Pulse Oximetry 94 06/30/23 14:24 Oxygen Delivery Me thod Room Air 06/30/23 14:24 MDM - SOB/Dyspnea Medical Decision Making Physical exam completed and documented, I did obtain a CBC and CMP and have noted that the patient's WBC and platelet count are elevated I suspect this is most likely secondary to the medications that the patient stopped taking. I have encouraged him to restart the medications that were prescribed [facility]. The patient has maintained an oxygen saturation of 96% or greater on room air during his entire visit here. Medical Records I reviewed the patient's medical records. Lab Data I reviewed the patient's lab results. 06/30/23 15:00 06/30/23 15:00 Labs/Radiology: Radiology Impressions Chest X-Ray 06/30/23 14:42 IMPRESSION: 1. No acute interval changes. 2. Marked emphysematous lung changes. Laboratory Results WBC 15.05 10^3/uL (3.29-11.43) H 06/30/23 15:00 RBC 4.27 10^6/uL (3.85-5.65) 06/30/23 15:00 Hgb 12.90 g/dL (11.27-16.99) 06/30/23 15:00 Hct 40.8 % (37-53) 06/30/23 15:00 MCV 95.6 fl (82-101) 06/30/23 15:00 MCH 30.2 pg (27-33) 06/30/23 15:00 MCHC 31.6 g/dL (30-55) 06/30/23 15:00 RDW 15.0 % (12.1-15.1) 06/30/23 15:00 Plt Count 472 10^3/cmm (157-399) H 06/30/23 15:00 MPV 8.6 fL (7.4-10.4) 06/30/23 15:00 Neut % (Auto) 78.2 % 06/30/23 15:00 Lymph % (Auto) 8.7 % 06/30/23 15:00 Ness % (Auto) 7.0 % 06/30/23 15:00 Eos % (Auto) 4.9 % 06/30/23 15:00 Baso % (Auto) 0.5 % 06/30/23 15:00 Neut # (Auto) 11.78 10^3/uL (1.8-7.7) H 06/30/23 15:00 Lymph # (Auto) 1.3 10^3/uL (0.8-4.8) 06/30/23 15:00 Ness # (Auto) 1.1 10^3/uL (0.2-0.9) H 06/30/23 15:00 Eos # (Auto) 0.7 10^3/uL (0.0-0.8) 06/30/23 15:00 Baso # (Auto) 0.1 10^3/uL (0.0-0.1) 06/30/23 15:00 Nucleated RBC % (auto) 0 % 06/30/23 15:00 Nucleated RBCs # 0.0 /100WBC 06/30/23 15:00 PT 14.10 SECONDS (12.1-14.9) 06/30/23 15:00 INR 1.06 (0.8-1.2) 06/30/23 15:00 Sodium 136 mmol/L (136-145) 06/30/23 15:00 Potassium 4.1 mmol/L (3.5-5.1) 06/30/23 15:00 Chloride 98 mmol/L (98-107) 06/30/23 15:00 Carbon Dioxide 29 mmol/L (22-29) 06/30/23 15:00 Anion Gap 13.1 (5-19) 06/30/23 15:00 BUN 15 mg/dL (8-23) 06/30/23 15:00 Creatinine 0.7 mg/dL (0.7-1.2) 06/30/23 15:00 GFR Calculation Not Reportable 06/30/23 15:00 Glucose 155 mg/dL (65-115) H 06/30/23 15:00 Calculated Osmolality 286 mOsm/kg (285-295) 06/30/23 15:00 Lactic Acid 2.0 mmol/L (0.5-2.2) 06/30/23 15:00 Calcium 8.9 mg/dL (8.5-10.5) 06/30/23 15:00 Total Bilirubin 0.2 mg/dL (0.15-1.2) 06/30/23 15:00 AST 14 U/L (0-40) 06/30/23 15:00 ALT 10 U/L (0-41) 06/30/23 15:00 Alkaline Phosphatase 144 U/L (40-130) H 06/30/23 15:00 NT-Pro-B Natriuret Pep 93 pg/mL (0-450) 06/30/23 15:00 Total Protein 7.7 g/dL (6.6-8.7) 06/30/23 15:00 Albumin 3.5 g/dL (3.5-5.2) 06/30/23 15:00 Globulin 4.2 g/dL (1.3-4.6) 06/30/23 15:00 All radiology interpretation(s) finalized by discharge Discharge Plan Discharge Patient Disposition: Home Clinical Impression: Tuberculosis, Anxiety Condition: Stable Prescriptions: No Action albuterol sulfate [ProAir HFA] 90 mcg/actuation HFA aerosol inhaler 2 puff INHALATION Q6H PRN (Reason: Shortness Of Breath) prednisone 5 mg Tablet 5 mg PO DAILY diphenhydramine HCl [Benadryl] 25 mg Capsule 25 mg PO BEDTIME echinacea 500 mg Capsule 500 mg PO DAILY PRN (Reason: unknown) Rx Instructions: administer with meals fluticasone propion-salmeterol 250-50 mcg/dose Blister With Device 1 inh INHALATION BID albuterol sulfate 2.5 mg /3 mL (0.083 %) Solution For Nebulization 2.5 mg INHALATION Q6H PRN (Reason: Shortness Of Breath) Vitamin C 500 mg Tablet 500 mg PO DAILY potassium citrate 10 mEq (1,080 mg) Tablet Extended Release 10 meq PO BID folic acid 1 mg Tablet 1 mg PO DAILY Flonase 50 mcg/actuation [place],Suspension 2 spray INTRANASAL BEDTIME Triple Turlock 3-6-9 400-400-400 mg Capsule 1 cap PO DAILY Vitamin D3 125 mcg (5,000 unit) Tablet 125 mcg PO DAILY ferrous gluconate 324 mg (37.5 mg iron) Tablet 324 mg PO DAILY tiotropium bromide 2.5 mcg/actuation Mist 2 puff INHALATION DAILY turmeric 400 mg Capsule 400 mg PO DAILY ciprofloxacin HCl 500 mg tablet 250 mg PO Q12H Qty: 20 0RF Discharge Orders: Discharge ED (Routine); Ordered 06/30/23 Ordered By: Marko James Referrals: Rito Montero, DO [Primary Care Provider] - Discharge Diet: Advance as tolerated Discharge Activity: Resume usual activity Patient Instructions: Opioid Safety, Pain Management Activity Restrictions/Additional Instructions: Activity Restrictions/Additional Instructions: Thank you for choosing [facility] for your healthcare needs today. Please realize that you were seen in the Emergency Department and that we are providing you with an emergency medical screening exam and this may not be a complete and all inclusive of all the testing and or medical work-up that you may need to determine your ailment or severity of your illness. It is very important that you follow-up as instructed with your Primary care provider or Specialist for additional evaluation and to discuss your medical treatment plan. You may return to the Emergency Department should you have concerns or if your condition changes or worsens in any way. Coding Level of Care Code ED Computer Numerical Control Operator for Glo Elena
== END 2023-06-30 17:36 | disposition home or self-care (01) ==
PROVIDERS: Emergency Provider Internal Medicine; PCP Emergency Medicine Emergency Medical Services
DX: A15.9 Respiratory tuberculosis unspecified (principal); F41.9 Anxiety disorder, unspecified; J44.9 Chronic obstructive pulmonary disease, unspecified; Z87.891 Personal history of nicotine dependence
CPT/HCPCS: 71045; 80053; 83605; 83880; 85025; 85610; 99284